=== PATIENT | female | born 1965 | race Caucasian/White ===

== ENCOUNTER 2025-08-24 10:33 | Emergency (ER) | payer MEDICARE, OTHER, SELFPAY ==
[2025-08-24 10:34] VITALS: BP 128/88
--- NOTE | 2025-08-24 11:50 | ED.GENMED ---
History of Present Illness
<Radha Jewell PA-C - Last Filed: 08/25/25 09:13>
General
Chief Complaint: DVT/Possible Blood Clot
Source: patient
Exam Limitations: none
Time Seen by Provider: 08/24/25 11:04
Nursing documentation reviewed up to this point in time: agreed with
History of Present Illness
History of Present Illness:
Patient is a 60-year-old female who presents to the emergency department for evaluation of left leg pain. She states pain woke her up from sleep this morning and describes a throbbing pain in her left lateral thigh radiating up the back of her leg.
She was unable to weight-bear this morning secondary to pain. Patient was concerned that she may have a blood clot prompting evaluation in the emergency department. She denies any fever, chills, chest pain or shortness of breath. No
numbness/tingling left lower leg. Patient denies any recent falls or trauma
Of note, patient did sustain a significant fall a few years ago where she landed on her left thigh on the edge of her deck. She has since had a chronic hematoma in that area. There is a small area of redness that is new.
Patient is on Xarelto and compliant with medication.
Past History
<Radha Jewell PA-C - Last Filed: 08/25/25 09:13>
Past History
ED Past Medical History: CAD, CVA, NC (2014), Psychiatric and Other (Polycythemia vera)
ED Past Surgical History: Appendectomy, Cardiac (Stents X2) and Orthopedic
Social History
Tobacco: Smoker
Alcohol: None
Drug: None
Personal:
Living: with family ( son)
Employment: Not employed
Family History
Family History: Other (CHF)
Review of Systems
<Radha Jewell PA-C - Last Filed: 08/25/25 09:13>
Review of Systems
Allergies reviewed?: Yes
All Other Systems: ROS reviewed and negative except as documented in HPI and ROS
Phy Exam
<Radha Jewell PA-C - Last Filed: 08/25/25 09:13>
Physical Exam
Physical Exam:
Vitals: Patient's vital signs are stable. Afebrile
General: Patient is well appearing, no acute distress
Skin: Warm and dry, no rashes or lesions
Head: Normocephalic, atraumatic
Throat: Protecting airway
Neck: Normal ROM, no cervical spine tenderness
Cardiac: Regular rate
Pulm: No apparent respiratory distress
Abdomen: Nondistended
Extremities: Approx 20 x 15 cm area of superficial soft swelling of left lateral thigh. There is no overlying skin erythema or warmth. NO fluctuance or induration. At more distal aspect there is a small localized area of erythema with minimal
induration. Generalized tenderness to left thigh. Good ROM in left knee and left hip. LLE neurovascularly intact.
Neuro: Grossly intact
Psychiatric: Normal affect.
Course
<Radha Jewell PA-C - Last Filed: 08/25/25 09:13>
Orders/Labs/Results
Orders:
Orders
08/24/25 10:37
Periph Venous Lwr Ext Left US [US Periph Venous LOWER Ext LT] Urgent
Comment: hx of DVT
Reason For Exam: swelling, redness, warmth
08/24/25 12:47
Amoxicillin 875 mg/Clav 125 mg [Augmentin 875 mg/125 mg] 1 tablet PO NOW STA
Vital Signs
Initial and Last Documented VS:
Initial Vital Signs
Temp Pulse Resp BP Pulse Ox
98.7 F 90 18 128/88 99
08/24/25 10:34 08/24/25 10:34 08/24/25 10:34 08/24/25 10:34 08/24/25 10:34
Last Documented Vital Signs
Temp Pulse Resp BP Pulse Ox
98.7 F 90 18 128/88 99
08/24/25 10:34 08/24/25 10:34 08/24/25 10:34 08/24/25 10:34 08/24/25 11:54
<Wing Davis MD - Last Filed: 08/24/25 12:44>
Orders/Labs/Results
Orders:
Orders
08/24/25 10:37
Periph Venous Lwr Ext Left US [US Periph Venous LOWER Ext LT] Urgent
Comment: hx of DVT
Reason For Exam: swelling, redness, warmth
08/24/25 12:47
Amoxicillin 875 mg/Clav 125 mg [Augmentin 875 mg/125 mg] 1 tablet PO NOW STA
Vital Signs
Initial and Last Documented VS:
Initial Vital Signs
Temp Pulse Resp BP Pulse Ox
98.7 F 90 18 128/88 99
08/24/25 10:34 08/24/25 10:34 08/24/25 10:34 08/24/25 10:34 08/24/25 10:34
Last Documented Vital Signs
Temp Pulse Resp BP Pulse Ox
98.7 F 90 18 128/88 99
08/24/25 10:34 08/24/25 10:34 08/24/25 10:34 08/24/25 10:34 08/24/25 11:54
<Radha Jewell PA-C - Last Filed: 08/25/25 09:13>
MDM/Problems Addressed
Differential Diagnosis Includes:
Not limited to: Cellulitis, DVT, neuropathic pain, hematoma, etc.
MDM/Problems Addressed:
60 year-old female with atraumatic left thigh pain. No fevers. Patient did sustain injury to left thigh a few years ago with fall and has chronic hematoma. Patient anticoagulated on Xarelto.
Vitals stable. On exam, there is a soft tissue mass on the left lateral thigh without any overlying erythema or warmth. At the distal aspect of this there is a small area of erythema and minimal induration. She has generalized tenderness of the left
lateral thigh. No obvious deformity. No calf pain. Extremity neurovascularly intact.
Differential includes neuropathic pain, mild cellulitis, infected hematoma. Less likely DVT as patient is anticoagulated, however, will obtain ultrasound for further evaluation.
Ultrasound without evidence of DVT. There is a complex fluid collection in the area of chronic hematoma. No areas of fluctuance or skin erythema/ warmth overlying hematoma. Do not feel there�s any indication for incision.
Will cover patient with abx for possible cellulitis, and advise primary care follow-up and return precautions. Patient comfortable with plan.
Chronic conditions affecting care:
N/A
Acute Exacerbation and/or Progression of Chronic Illness:
N/A
<Radha Jewell PA-C - Last Filed: 08/25/25 09:13>
*Radiology
Radiology exam reviewed: radiology read reviewed
*Pulse Oximetry
SaO2: 99
Oxygen Mode of Delivery: Room air
Patient hypoxic: no
*EKG
Interpreted by ED Provider?: NA
*Early Years Teacher Interpretation
Rate: Early Years Teacher- N/A
*Critical Care Note
Total Time (30-74mins, 75-104mins- exclusive of procedures): Not Applicable
ED Attending Note
<Radha Jewell PA-C - Last Filed: 08/25/25 09:13>
-
Portions of this chart may have been created with voice recognition software.� Occasional wrong word or��sound alike� substitutions may have occurred due to the inherent limitations of voice recognition software.
<Wing Davis MD - Last Filed: 08/24/25 12:44>
ED Attending Note
Patient seen and examined by attending physician: Yes
I performed the substantive portion of visit, reviewed & personally made and approve the management plan that is documented in note by myself or MATT.: Yes
ED Attending Note:
60-year-old female complaining of pain under a chronically swollen left lateral thigh area. Started last night. Concerned about a DVT. No chest pain shortness of breath fever or other complaints. On exam patient is nontoxic in no distress. Her
left leg has a approximately 20 cm x 15 cm area of superficial swelling with mild softness or fluctuance. There is no unusual warmth or erythema there is no drainage. There is no induration. She does have tenderness over this area. However just
distal to this is an area of erythema at the base of this swelling. This area is mildly indurated. Good distal pulses and color
Ultrasound shows a complex collection within the open the lateral thigh. Chronic hematoma. No DVT. Popliteal cyst.
Impression this appears to be a local area of erythema and tenderness. Would have to assume this is an infectious issue at this time. However the large chronic hematoma has no warmth or erythema over it. Would not recommend opening that at this
time. Will start antibiotics and close follow-up. No indication for admission or drainage at this time.
Discharge Plan
Departure
Patient Disposition: Home (Routine Discharge)
Date of Disposition: 08/24/25
Time of Disposition: 12:48
Patient with high blood pressure during this ER visit?: Yes
Condition: Good
Discharge Problem:
Cellulitis of left leg
Instructions: Valentine's Cyst (DC), Cellulitis (Skin Infection), Adult (DC), BLOOD PRESSURE
Prescriptions:
New
amoxicillin-pot clavulanate 875-125 mg tablet
1 tab PO BID Qty: 14 0RF
No Action
carvedilol 3.125 mg tablet
3.125 mg PO BID
pantoprazole 40 mg tablet,delayed release (DR/EC)
40 mg PO DAILY
sertraline 50 mg tablet
75 mg PO DAILY
ranolazine 500 mg tablet extended release 12 hr
500 mg PO BID
Jardiance 10 mg tablet
10 mg PO DAILY
rosuvastatin 20 mg Tablet
20 mg PO DAILY Qty: 30 0RF
hydroxyurea 500 MG capsule
500 mg PO Q48H Qty: 30 0RF
Xarelto 20 MG tablet
20 mg PO QPM Qty: 30 0RF
furosemide [Lasix] 20 mg tablet
20 mg PO DAILY Qty: 90 3RF
nitroglycerin 0.4 MG tablet, sublingual
0.4 mg sublingual [id number] PRN (Reason: Chest pain) Qty: 9 0RF
Referrals:
Patrice Lam, DO [Family Provider, Family Practice] - Follow up in 5-7 days
Activity Restrictions/Additional Instructions:
RETURN TO THE EMERGENCY DEPARTMENT WITH ANY FEVER, CHILLS, WORSENING PAIN, WORSENING PAIN, SWELLING, OR WARMTH OF LEFT LEG, OR ANY OTHER CONCERNS
- As discussed�your ultrasound showed no evidence of a DVT. A prescription for antibiotics was sent to your pharmacy to cover for possible infection. Please take this twice a day for the next week.
- You can take Tylenol as needed for pain.
- Follow-up with primary care for further evaluation/management to ensure that your symptoms are improving
Monitor your symptoms closely and return to the emergency department with any acute worsening/new symptoms or any signs of a worsening infection
Interventions
Interventions:
*Risk Screen - Suicide Last Done: 08/24/25 10:34
*General Assessment Last Done: 08/24/25 10:34
*Neglect/Abuse Screening Last Done: 08/24/25 12:58
*ED- Fall Risk Assessment Last Done: 08/24/25 11:13
*ED COVID-19 Vaccine History Last Done: 08/24/25 11:13
*ED Influenza Vaccine History Last Done: 08/24/25 11:13
*Nursing Disposition Last Done: 08/24/25 12:58
ED- Cardiac Assessment Last Done: 08/24/25 11:13
ED- Pulmonary Assessment Last Done: 08/24/25 11:13
ED-Peripheral Vascular Assessment Last Done: 08/24/25 12:10
ED-Skin Assessment Last Done: 08/24/25 11:13
Discharge Date and Time
Discharge Date/Time: 08/24/25 12:58
Print Language: CZECH
[2025-08-24 12:10] VITALS: BMI 35.6
[2025-08-24] MEDS: AUGMENTIN 875 MG/125 MG 1 TABLET PO (12:54)
== END 2025-08-24 12:58 | disposition home or self-care (01) ==
LOC: EMR 10:33
PROVIDERS: EMERGENCY PHYSICIAN Emergency Medicine; FAMILY PHYSICIAN Family Medicine
DX: L03.116 Cellulitis of left lower limb (principal); R03.0 Elevated blood-pressure reading, without diagnosis of hypertension; I25.10 Atherosclerotic heart disease of native coronary artery without angina pectoris; I25.2 Old myocardial infarction; D45 Polycythemia vera; F17.200 Nicotine dependence, unspecified, uncomplicated; Z79.01 Long term (current) use of anticoagulants; Z86.73 Personal history of transient ischemic attack (TIA), and cerebral infarction without residual deficits; Z95.5 Presence of coronary angioplasty implant and graft; Z86.718 Personal history of other venous thrombosis and embolism; Z82.49 Family history of ischemic heart disease and other diseases of the circulatory system
CPT/HCPCS: 99284; 93971; 99285

== ENCOUNTER 2025-09-09 10:25 | Outpatient (RCR) | payer MEDICARE, OTHER, SELFPAY ==
[2025-09-09 11:06] VITALS: BP 125/75
[2025-09-09 11:42] VITALS: BP 123/76
[2025-09-09 11:50] VITALS: BP 115/86
== END 2025-09-18 23:59 | disposition home or self-care (01) ==
LOC: OID 10:25
PROVIDERS: ATTENDING PHYSICIAN Internal Medicine Hematology & Oncology
DX: D45 Polycythemia vera (principal)
CPT/HCPCS: 99195